=== PATIENT | male | born 1985 | race Two or more races ===

== ENCOUNTER 2023-07-31 09:23 | Emergency (ER) | payer OTHER ==
[~2023-07-31] VITALS: Ht 182.9 cm; Wt 176.9 kg
[~2023-07-31 09:23] MED LIST: FLONASE16 GM NS; GILTUSS TR TAB1 EACH PO; ZYRTEC10 MG PO
[2023-07-31] MEDS ORDERED: RINGERS SOLUTION,LACTATED 1,000 ML IV STA (09:53)
[2023-07-31] MEDS ORDERED: FAMOtidine 10 MG/ML (4ML VIAL) IV STA (09:54)
[2023-07-31] MEDS ORDERED: METOCLOPRAMIDE HCL 5 MG/ML VIAL IV STA (09:55)
[2023-07-31 10:30] LABS: HEMATOCRIT 39.9 % (39.0-48.0); HEMOGLOBIN 13.8 g/dL (13-16.00); MEAN CELL VOLUME 87.4 fL (80.0-100.00); MEAN CORPUSCULAR HEMOGLOBIN 30.3 pg (27.00-32.0); MEAN CORPUSCULAR HGB CONC 34.7 g/dl (32.0-36.0); PLATELET COUNT 314 K/uL (150-450); RED BLOOD COUNT 4.56 M/uL (4.00-6.00); RED CELL DISTRIBUTION WIDTH 13.9 % (11.5-14.5)
[2023-07-31 10:48] LABS: URINE BILIRRUBIN Negative (NEGATIVE); URINE BLOOD Negative; URINE COLOR Yellow; URINE GLUCOSE Negative (NEGATIVE); URINE LEUKOCYTE Negative; URINE NITRATE Negative; URINE PROTEIN Negative (NEGATIVE)
[2023-07-31 10:51] LABS: URINE EPITHELIAL CELLS 4.7 uL (0.0-38.8); URINE WBC 7.7 uL (0.0-23.2)
[2023-07-31 11:07] LABS: PH,URINE 5.5 (5.0-8.0); URINE APPEARANCE Clear
[2023-07-31 11:22] LABS: ALBUMIN 3.3 gm/dL (3.4-5.0); ALKALINE PHOSPHATASE 85 U/L (50-136); ALT/SGPT 26 U/L (12-78); AMYLASE 61 U/L (25-115); ANION GAP 8 (10.0-20.0); AST/SGOT 20 U/L (15-37); BILIRUBIN TOTAL 0.43 mg/dL (0.3-1.2); BILIRUBIN,CONJUGATED < 0.10 mg/dL (0.0-0.2); BILIRUBIN,UNCONJUGATED 0.33 mg/dL (0.0-0.6); BLOOD UREA NITROGEN 13 mg/dL (7-18); BUN CREA RATIO 13 (7.0-25.0); CALCIUM 8.5 mg/dL (8.5-10.1); CARBON DIOXIDE 27 mEq/L (21-32); CHLORIDE 110 mmol/L (98-107); CREATININE SERUM 1.03 mg/dL (0.70-1.30); GFR 81.71; GLUCOSE FASTING 89 mg/dL (65-100); OSMOLALITY SERUM 281 MOSM/KG (275-295); POTASSIUM 3.84 mEq/L (3.5-5.1); SODIUM 141 mmol/L (136-145); TOTAL PROTEIN 7.3 gm/dL (6.4-8.2)
== END 2023-07-31 15:43 | disposition home or self-care (01) ==
LOC: ER 09:24
PROVIDERS: General Practice
DX: R10.13 Epigastric pain (principal)